=== PATIENT | male | born 1965 | race Caucasian/White ===

== ENCOUNTER 2016-12-30 08:42 | Emergency (ER) | payer SELFPAY | END 2016-12-30 12:40 | disposition home or self-care (01) | LOC: D.ER 08:42 | DX: R42 Dizziness and giddiness (principal); E11.9 Type 2 diabetes mellitus without complications; I10 Essential (primary) hypertension ==

== ENCOUNTER 2018-06-20 12:01 | Emergency (ER) | payer MEDICAID ==
[~2018-06-20] VITALS: Ht 180.3 cm; Wt 125.0 kg
[2018-06-20 12:16] VITALS: Ht 180.3 cm; Wt 125.0 kg
[2018-06-20] MEDS ORDERED: GLUCOPHAGE500 MG PO (12:19)
[2018-06-20] MEDS ORDERED: ALLEGRA-D1 TAB.SR1 PO (12:20)
[2018-06-20] MEDS ORDERED: ZESTORETIC 20/21 TAB PO (12:20)
[2018-06-20] MEDS ORDERED: LEVAQUIN500 MG (12:23)
[2018-06-20 14:02] LABS: BASOPHILS 0.4 % (0-2); EOSINOPHILS 2.3 % (0-7); HEMATOCRIT 47.5 % (42.0-54.0); HEMOGLOBIN 16.1 g/dL (13.5-17.5); IMMATURE GRANULOCYTES 0.3 % (0-5); LYMPHOCYTES 14.3 % (15-50); MCH 30.1 pg (26.0-34.0); MCHC 33.9 g/dL (31.0-37.0); MCV 88.8 fL (80.0-100.0); MEAN PLATELET VOLUME 10.2 fL (7.4-10.4); MONOCYTES 9.5 % (2-11); NEUTROPHILS 73.2 % (40-80); PLATELET COUNT 202 10x3/uL (130-400); RBC 5.35 10x6/uL (4.20-6.10); RDW 13.1 % (11.5-14.5); WBC 7.9 10x3/uL (4.8-10.8)
[2018-06-20 14:20] LABS: ALBUMIN 3.2 g/dL (3.4-5.0); ALT (SGPT) 84 U/L (10-68); BILIRUBIN - TOTAL 0.45 mg/dL (0.2-1.3); CALC OSMOLALITY 279 mosm/kg (275-300); CALCIUM 8.5 mg/dL (8.5-10.1); CARBON DIOXIDE 37.4 mmol/L (21.0-32.0); CHLORIDE - SERUM 102 mmol/L (98-107); CREATININE - SERUM 1.1 mg/dL (0.6-1.3); GLUCOSE 111 mg/dL (74-106); POTASSIUM - SERUM 3.2 mmol/L (3.5-5.1); SODIUM 140 mmol/L (136-145); UREA NITROGEN 12 mg/dL (7-18); eGFR NON AFRICAN AMERICAN 74 mL/min (90-120)
[2018-06-20 14:30] LABS: CKMB 1.9 U/L (0.0-3.6); CREATINE KINASE 237 UL (21-232)
[2018-06-20 14:34] LABS: TROPONIN-I < 0.017 ng/mL (0.000-0.060)
[2018-06-20 14:42] LABS: ALKALINE PHOSPHATASE 93 U/L (46-116)
[2018-06-20] MEDS ORDERED: OMNICEF300 MG PO (17:14)
[2018-06-20] MEDS ORDERED: STERAPRED DS 1210 MG PO (17:14)
[2018-06-20 17:59] VITALS: BP 157/96
== END 2018-06-20 18:05 | disposition home or self-care (01) ==
LOC: D.ER 12:01
PROVIDERS: Family Medicine
DX: J44.1 Chronic obstructive pulmonary disease with (acute) exacerbation (principal); J40 Bronchitis, not specified as acute or chronic; F17.200 Nicotine dependence, unspecified, uncomplicated; I10 Essential (primary) hypertension

== ENCOUNTER 2019-09-22 14:21 | Inpatient (IN) | payer MEDICAID ==
[~2019-09-22] VITALS: Ht 180.3 cm; Wt 120.2 kg
[~2019-09-22 14:21] MED LIST: ALLEGRA-D1 TAB.SR1 PO; GLUCOPHAGE500 MG PO; LEVAQUIN500 MG; OMNICEF300 MG PO; STERAPRED DS 1210 MG PO; ZESTORETIC 20/21 TAB PO
[2019-09-22 14:59] LABS: CALC OSMOLALITY 271 mosm/kg (275-300); CALCIUM 9.5 mg/dL (8.5-10.1); CARBON DIOXIDE 30.6 mmol/L (21.0-32.0); CHLORIDE - SERUM 96 mmol/L (98-107); CREATININE - SERUM 1.3 mg/dL (0.6-1.3); GLUCOSE 108 mg/dL (74-106); POTASSIUM - SERUM 3.3 mmol/L (3.5-5.1); SODIUM 135 mmol/L (136-145); UREA NITROGEN 15 mg/dL (7-18); eGFR NON AFRICAN AMERICAN 61 mL/min (90-120)
[2019-09-22 15:10] LABS: BASOPHILS 0.2 % (0-2); EOSINOPHILS 0.4 % (0-7); HEMATOCRIT 50.7 % (42.0-54.0); HEMOGLOBIN 16.9 g/dL (13.5-17.5); IMMATURE GRANULOCYTES 0.2 % (0-5); MCH 29.5 pg (26.0-34.0); MCHC 33.3 g/dL (31.0-37.0); MCV 88.6 fL (80.0-100.0); MEAN PLATELET VOLUME 10.4 fL (7.4-10.4); MONOCYTES 9.5 % (2-11); NEUTROPHILS 80.7 % (40-80); RBC 5.72 10x6/uL (4.20-6.10); RDW 13.5 % (11.5-14.5); WBC 16.4 10x3/uL (4.8-10.8)
[2019-09-22 15:11] LABS: INR 1.12 (0.85-1.17); PLATELET COUNT 262 10x3/uL (130-400); PROTIME 13.9 SECONDS (11.6-15.0)
[2019-09-22 15:12] LABS: ALBUMIN 3.3 g/dL (3.4-5.0); ALKALINE PHOSPHATASE 78 U/L (46-116); ALT (SGPT) 25 U/L (10-68); APTT 27.8 SECONDS (22.8-39.4); BILIRUBIN - TOTAL 0.81 mg/dL (0.2-1.3); CKMB 0.4 U/L (0.0-3.6); CREATINE KINASE 105 UL (21-232); PRO BNP 24 pg/mL (0-125); PROTEIN - SERUM 8.3 g/dL (6.4-8.2)
[2019-09-22 15:19] LABS: TROPONIN-I < 0.017 ng/mL (0.000-0.060)
--- NOTE | 2019-09-22 17:18 | MORECARE ---
CASE MANAGEMENT DISCHARGE SUMMARY PATIENT: LARISSA RADER UNIT: [id number] ADM DATE: 09/22/19 AGE: 54 : 61 SEX: M ROOM/BED: D.2130 AUTHOR: CASSANDRA MOORE PHYSICIAN: REFERRING PHYSICIAN: BISI MALDONADO MD DATE OF SERVICE: 09/22/19 Discharge Plan Patient Name: [facility]ARISSA RADER [facility] [facility] 1965 Planned Disposition: Home Anticipated Discharge Date: 09/24/19 Discharge Date: Expected LOS: 2 Initial Reviewer: [email or web address] Initial Review Date: 09/22/2019 Generated: 09/22/19 6:18 pm DCPIA - Discharge Planning Initial Assessment Updated by [email or web address]: Jenn Soto on 09/22/19 5:16 pm * Is the patient Alert and Oriented? Yes * How many steps to enter\exit or inside your home? * PCP Dr. Mcintyre * [facility] * Preadmission Environment Home Alone * ADLs Independent * Equipment CPAP Nebulizer * List name and contact numbers for known caregivers / representatives who currently or will assist patient after discharge: Obed Rader ha- [phone] * Verbal permission to speak to the caregivers and representatives has been obtained from the patient. Yes * Community resources currently utilized None * Additional services required to return to the preadmission environment? No * Can the patient safely return to the preadmission environment? Yes * Has this patient been hospitalized within the prior 30 days at any hospital? No Patient Name: LARISSA RADER Page [id number] at 1718 All edits/amendments must be made on the electronic document DICTATION DATE: 09/22/191717 MOLD MAKER HELPER: DANIA 09/22/191717 RPT#: [id number] DC DATE: STATUS: ADM IN [facility] [address] [place] [address] END OF REPORT
--- NOTE | 2019-09-22 18:27 | NUR ---
RECEIVED PT TO ROOM 2130 AAOX4 RESP SL SOB RATE 24 O2 ON 5L/M NCDENIES ANY NEEDS OR PAIN AT THIS TIME
[2019-09-23] VITALS: BP 127/58
[2019-09-23 01:46] VITALS: BMI 37.7
[2019-09-23 04:00] VITALS: BP 136/92
--- NOTE | 2019-09-23 04:40 | NUR ---
IV TO LEFT HAND OUT, TIP INTACT.
--- NOTE | 2019-09-23 04:59 | NUR ---
AFTER 4 UNSUCCESSFUL ATTEMPTS TO RESITE PIV, CALLED TO ICU, LEFT A MESSAGE FOR PRIYA GRESHAM TO SEE IF HE CAN START AN IV.
[2019-09-23 06:07] LABS: ALBUMIN 3.2 g/dL (3.4-5.0); ANION GAP 11.3 mmol/L (8-16); BILIRUBIN - TOTAL 0.42 mg/dL (0.2-1.3); CALCIUM 9.5 mg/dL (8.5-10.1); CARBON DIOXIDE 34.4 mmol/L (21.0-32.0); CREATININE - SERUM 1.3 mg/dL (0.6-1.3); POTASSIUM - SERUM 3.7 mmol/L (3.5-5.1); PROTEIN - SERUM 7.7 g/dL (6.4-8.2)
[2019-09-23 06:15] LABS: BASOPHILS 0.1 % (0-2); EOSINOPHILS 0 % (0-7); HEMATOCRIT 51.7 % (42.0-54.0); HEMOGLOBIN 16.9 g/dL (13.5-17.5); IMMATURE GRANULOCYTES 0.3 % (0-5); LYMPHOCYTES 3.8 % (15-50); MCH 29.2 pg (26.0-34.0); MCHC 32.7 g/dL (31.0-37.0); MCV 89.3 fL (80.0-100.0); MEAN PLATELET VOLUME 10.6 fL (7.4-10.4); MONOCYTES 2.1 % (2-11); NEUTROPHILS 93.7 % (40-80); PLATELET COUNT 285 10x3/uL (130-400); RBC 5.79 10x6/uL (4.20-6.10); RDW 13.5 % (11.5-14.5); WBC 19.5 10x3/uL (4.8-10.8)
--- NOTE | 2019-09-23 07:45 | NUR ---
INFORMED PT ABOUT NEEDING URINE SAMPLE. PROVIDED PT WITH COLLECTION CUP AND ASKED HIM TO NOTIFY NURSE OR TABLE GAMES DEALER WHEN SAMPLE IS AVAILABLE. PT RESTING COMFORTABLY IN BED, A/O X4, RESP EVEN AND NONLABORED ON 4.5L NC. RT WRIST IV SL. PT DENIES ANY NEEDS AT THIS TIME. CALL LIGHT IN REACH, NAD NOTED, WILL CONTINUE PLAN OF CARE.
[2019-09-23 09:01] VITALS: BP 152/71
[2019-09-23 13:25] VITALS: BP 142/75
[2019-09-23 14:40] VITALS: BMI 36.9
[2019-09-23 16:23] LABS: APPEARANCE CLEAR (CLEAR); BILIRUBIN NEGATIVE (NEGATIVE); COLOR DK YELLOW (YELLOW); GLUCOSE NEGATIVE (NEGATIVE); KETONE NEGATIVE (NEGATIVE); NITRITE POSITIVE (NEGATIVE); PROTEIN NEGATIVE (NEGATIVE); SPECIFIC GRAVITY 1.015 (1.005-1.020); UROBILINOGEN NORMAL (NORMAL)
[2019-09-23 16:28] LABS: BACTERIA MODERATE /hpf (NEGATIVE); WHITE CELLS - URINE 0-5 /hpf (NEGATIVE)
[2019-09-23 17:15] VITALS: BP 129/71
--- NOTE | 2019-09-23 19:10 | NUR ---
AWAKE AND ALERT DENIES NEEDS AT THIS TIME LUNGS DEMINISHED BED LOW AND LOCKED AND CALL LIGHT IN REACH
[2019-09-23 20:00] VITALS: BP 119/76
[2019-09-24] VITALS: BP 130/72
--- NOTE | 2019-09-24 02:55 | NUR ---
I have reviewed this patient and I concur with the Shift Assessment completed by the Licensed Practical Nurse today this shift.
[2019-09-24 06:27] VITALS: BP 110/65
--- NOTE | 2019-09-24 08:39 | NUR ---
PT RESTING. RR EVEN AND UNALBORED. DENIES NEEDS OR PAIN AT THIS TIME. BED IN LOWEST POSITION. CALL LIOGHT WITHIN REACH. WILL CONTINUE TO MONITOR.
[2019-09-24 09:36] VITALS: BP 119/63
[2019-09-24 11:35] VITALS: Ht 180.3 cm; Wt 120.2 kg
[2019-09-24 14:07] LABS: HEMATOCRIT 49.4 % (42.0-54.0); HEMOGLOBIN 16.5 g/dL (13.5-17.5); MCH 30.1 pg (26.0-34.0); MCHC 33.4 g/dL (31.0-37.0); MEAN PLATELET VOLUME 10.8 fL (7.4-10.4); PLATELET COUNT 368 10x3/uL (130-400); RBC 5.49 10x6/uL (4.20-6.10); RDW 13.4 % (11.5-14.5); WBC 27.3 10x3/uL (4.8-10.8)
[2019-09-24 14:13] LABS: ANION GAP 12.6 mmol/L (8-16); CALCIUM 9.1 mg/dL (8.5-10.1); CARBON DIOXIDE 32.1 mmol/L (21.0-32.0); CREATININE - SERUM 1.2 mg/dL (0.6-1.3); POTASSIUM - SERUM 3.7 mmol/L (3.5-5.1)
[2019-09-24 14:24] LABS: LYMPHOCYTES 3 % (15-50); MONOCYTES 2 % (2-11); NEUTROPHILS 94 % (40-80); PLATELET ESTIMATE NORMAL
--- NOTE | 2019-09-24 15:36 | NUR ---
I have reviewed this patient and I concur with the Shift Assessment completed by the Licensed Practical Nurse today this shift.
[2019-09-24] MEDS ORDERED: OMNICEF300 MG PO (16:24)
[2019-09-24] MEDS ORDERED: ZITHROMAX250 MG PO (16:24)
[2019-09-24] MEDS ORDERED: PREDNISONE10 MG PO (16:26)
--- NOTE | 2019-09-24 17:26 | NUR ---
D/C INSTRUCTIONS REVIEWED. NO FURTHER QUESTIONS AN VERBALIZED UNDERSTANDING. IV D/C WITH CATHETER TIP INTACT. PT LET VIA WHEELCHAIR WITH ALL BELONGINGS TO PERSONAL VEHICLE.
--- NOTE | 2019-09-26 09:24 | MORECARE ---
CASE MANAGEMENT DISCHARGE SUMMARY PATIENT: LARISSA RADER UNIT: [id number] ADM DATE: 09/22/19 AGE: 54 : 61 SEX: M ROOM/BED: D.2130 AUTHOR: TERESADOC PHYSICIAN: REFERRING PHYSICIAN: BISI MALDONADO MD DATE OF SERVICE: 09/26/19 Discharge Plan Patient Name: LARISSA RADER Facility: [facility]:[place] : 1965 Planned Disposition: Home Anticipated Discharge Date: 09/24/19 Discharge Date: 09/24/2019 Expected LOS: 2 Initial Reviewer: [email or web address] Initial Review Date: 09/22/2019 Generated: 09/26/19 10:24 am DCP- Discharge Planning Updated by [email or web address]: Jenn Soto on 09/22/19 4:[address] DC PLAN: Return home alone - lives in a 5th wheel. ANTICIPATED DC NEEDS: May need home O2 at dc. CM met with patient to complete initial dc planning assessment. CM educated patient on the CM role and verbal consent given by patient to complete assessment. CM verified patient's address, phone number, and emergency contact phone numbers. Patient lives at home alone. Reports he has 3 steps up to enter his 5th wheel. At discharge patient plans to return home and feels this is a safe discharge. CM discussed availability of home health, rehab services, and medical equipment. Patient denied known discharge needs at this time. Patient very short of breath and having a difficult time talking. Transportation provider at discharge will be his brother. CM will continue to follow and will assist as needed with dc plans/needs. Jenn Soto RN, [facility] DCPIA - Discharge Planning Initial Assessment Updated by [email or web address]: Jenn Soto on 09/22/19 5:16 pm * Is the patient Alert and Oriented? Yes * How many steps to enter\exit or inside your home? * PCP Dr. Mcintyre * [facility] * Preadmission Environment Home Alone * ADLs Independent * Equipment CPAP Nebulizer * List name and contact numbers for known caregivers / representatives who currently or will assist patient after discharge: Obed Rader -- [phone] * Verbal permission to speak to the caregivers and representatives has been obtained from the patient. Yes * Community resources currently utilized None * Additional services required to return to the preadmission environment? No * Can the patient safely return to the preadmission environment? Yes * Has this patient been hospitalized within the prior 30 days at any hospital? No Last DP export: 09/22/19 4:18 Patient Name: LARISSA RADER Page [id number] at 0924 All edits/amendments must be made on the electronic document DICTATION DATE: 09/26/19923 PMP PROJECT MANAGER: DANIA 09/26/19923 RPT#: [id number] DC DATE:09/24/19 STATUS: DIS IN [facility] [address] [place] [address] END OF REPORT
== END 2019-09-24 17:28 | disposition home or self-care (01) | DRG 189 ==
LOC: D.ER 14:21 → D.M2 15:58
PROVIDERS: Family Medicine; ADMIT Family Medicine; ATTEND Family Medicine
DX: J96.01 Acute respiratory failure with hypoxia (principal); J44.1 Chronic obstructive pulmonary disease with (acute) exacerbation; F17.213 Nicotine dependence, cigarettes, with withdrawal; E87.1 Hypo-osmolality and hyponatremia; J44.0 Chronic obstructive pulmonary disease with (acute) lower respiratory infection; E11.65 Type 2 diabetes mellitus with hyperglycemia; E11.40 Type 2 diabetes mellitus with diabetic neuropathy, unspecified; F41.8 Other specified anxiety disorders; I10 Essential (primary) hypertension; E87.6 Hypokalemia; J20.9 Acute bronchitis, unspecified; E66.9 Obesity, unspecified; Z68.37 Body mass index [BMI] 37.0-37.9, adult